=== PATIENT | female | born 1955 | race Caucasian/White ===

== ENCOUNTER → 2025-07-01 08:47 | Outpatient (CLI) | payer MEDICARE, OTHER, SELFPAY ==
--- NOTE | 2025-07-01 08:51 | DI.CT.S_ITS ---
PROCEDURE: CT KNEE LEFT WITHOUT CON INDICATIONS: Left knee pain TECHNIQUE: Noncontrast 1-1.5 mm axial sections acquired from the mid-patella to the proximal tibia, with coronal and sagittal reformats. COMPARISON: [facility], , XR KNEE ARTHRITIC SERIES LT, 04/07/2025, 10:31. FINDINGS: Image quality: Excellent. 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 There is periprosthetic lucency about the tibial component, concerning for loosening. The tibial plate is not flush with the medial tibial cortex. There is slight mesial tilt of the lateral aspect of the tibial plate. There is mild lateral and posterior subluxation of the tibial plateau with respect to the femoral condyle. No knee dislocation. Chondrocalcinosis of the lateral compartment, presenting CPPD arthropathy. Moderate degenerative changes of the lateral compartment. Mild degenerative change of the patellofemoral compartment. Small ossified body anterior to the proximal tibiofibular articulation. Lateral tilt of the patella. Soft tissues: Large, complex knee effusion. No popliteal cyst. IMPRESSION: 1. Status post medial compartment unicompartmental knee arthroplasty with findings concerning for loosening of the tibial component. 2. Mild lateral and posterior subluxation of the tibial plateau with respect to the femoral condyle. 3. Large knee effusion. 4. Additional degenerative changes. Dictated by: Arianna Mir M.D. on 07/01/2025 at 12:04 Approved by: Arianna Mir M.D. on 07/01/2025 at 12:11
== END ==
LOC: CT 08:49
PROVIDERS: Family Provider Nurse Practitioner Family; PCP Physician Assistant; Referring Provider Physician Assistant; Visit Provider Student in an Organized Health Care Education/Training Program
DX: S83.142A Lateral subluxation of proximal end of tibia, left knee, initial encounter (principal); M11.262 Other chondrocalcinosis, left knee; M11.862 Other specified crystal arthropathies, left knee; M25.562 Pain in left knee; M25.462 Effusion, left knee; Z96.652 Presence of left artificial knee joint
CPT/HCPCS: 73700